=== PATIENT | male | born 1975 | race Two or more races ===

== ENCOUNTER 2018-02-21 18:50 | Emergency (ER) | payer SELFPAY ==
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
[2018-02-21] MEDS ORDERED: HYDROCODONE/APAP 5/325 TAB PO ONE (19:45)
[2018-02-21] MEDS ORDERED: HYDROCOD/APAP 5/325 PREPACK#6 BTL TAKEHOME ONE (19:56)
[2018-02-21 20:14] VITALS: BP 102/72
== END 2018-02-21 20:12 | disposition home or self-care (01) ==
LOC: CED 18:50
DX: S42.101A Fracture of unspecified part of scapula, right shoulder, initial encounter for closed fracture (principal); F17.200 Nicotine dependence, unspecified, uncomplicated; V86.99XA Unspecified occupant of other special all-terrain or other off-road motor vehicle injured in nontraffic accident, initial encounter
CPT/HCPCS: 71046-PO; 73020-PO; 73030-PO; A4565